=== PATIENT | female | born 1955 | race Caucasian/White ===

== ENCOUNTER 2023-01-04 11:50 | Outpatient (CLI) | payer SELFPAY ==
[2023-01-04 13:19] LABS: #Eosinphils 0.1 10x3/uL (0.0-0.5); #Monocytes 0.8 10x3/uL (0.0-1.1); #Neutrophils 7.8 10x3/uL (1.5-8.4); %Basophils 0.4 % (0.0-2.0); %Eosinophils 1.2 % (0.0-6.0); %Lymphocytes 12.3 % (18.0-47.0); %Neutrophils 77.6 % (40.0-75.0); Hemoglobin 10.6 g/dL (12.0-15.5); Mean Corpuscular HGB CONC 31.8 g/dL (32.0-36.0); Mean Corpuscular Hemoglobin 27.5 pg (27.0-33.0); Mean Corpuscular Volume 86.3 fl (81.6-98.3); Mean Platelet Volume 9.2 fl (7.4-10.4); Platelet Count 408 10x3/uL (150-450); RBC Distribution Width 14.1 % (11.5-14.5); Red Blood Cell (RBC) Count 3.86 10x6/uL (3.90-5.03); White Blood Cell (WBC) Count 10.1 10x3/uL (3.5-10.5)
[2023-01-04 13:37] LABS: Anion Gap 14 mmol/L (10-20); BUN (Urea Nitrogen) 12 mg/dL (9.8-20.1); Calc. Creatinine Clearance 0 mL/min (70-130); Calcium 9.3 mg/dL (7.8-10.44); Carbon Dioxide 27 mmol/L (23-31); Chloride 98 mmol/L (98-107); Estimated GFR 85; Glucose 87 mg/dL (80-115); Sodium 134 mmol/L (136-145)
== END 2023-01-04 11:51 | disposition home or self-care (01) ==
LOC: LABBT 11:50
PROVIDERS: ATTEND Surgery
DX: Z01.812 Encounter for preprocedural laboratory examination (principal); R59.1 Generalized enlarged lymph nodes
CPT/HCPCS: 80048; 85025

== ENCOUNTER 2023-01-07 11:48 | Inpatient (IN) | payer SELFPAY ==
[2023-01-07] MEDS ORDERED: Esmolol 100 MG/10 ML VIAL ONE (12:44)
[2023-01-07] MEDS ORDERED: Calcium Carbonate 500 MG ChewTAB PO PRN (13:11)
[2023-01-07] MEDS ORDERED: Ondansetron ODT 4 MG TAB PO PRN (13:11)
[2023-01-07] MEDS ORDERED: Senokot S 8.6-50 MG TAB PO PRN (13:11)
[2023-01-07] MEDS ORDERED: Acetaminophen 325 MG TAB PO PRN (13:11)
[2023-01-07] MEDS ORDERED: Ondansetron PF 4 MG/2 ML Vial IVP PRN (13:11)
[2023-01-07] MEDS ORDERED: Albuterol 200 PUFF (6.7GM INHALER) INH PRN (13:15)
[2023-01-07] MEDS ORDERED: Metoprolol Tartrate 5 MG/5 ML VIAL IVP PRN (13:19)
[2023-01-07 14:20] LABS: #Monocytes 0.5 thou/uL (0.11-0.59); #Neutrophils 9.3 thou/uL (1.40-6.50); %Basophils 0.4 % (0.0-1.0); %Eosinophils 0.2 % (0.0-10.0); %Lymphocytes 8.8 % (21.0-51.0); %Monocytes 4.7 % (0.0-10.0); %Neutrophils 85.8 % (42.0-75.0); Hemoglobin 11.1 g/dL (12.0-16.0); Mean Corpuscular HGB CONC 32.3 g/dL (32.0-36.0); Mean Corpuscular Hemoglobin 28.1 pg (27.0-31.0); Mean Corpuscular Volume 87.1 fl (78.0-98.0); Mean Platelet Volume 6.9 fL (7.4-10.4); Platelet Count 374 10x3/uL (130-400); RBC Distribution Width 12.9 % (11.5-14.5); Red Blood Cell (RBC) Count 3.96 mill/uL (4.20-5.40); White Blood Cell (WBC) Count 10.9 10x3/uL (4.8-10.8)
[2023-01-07] MEDS ORDERED: fentaNYL 50 mcg/mL 1 mL Vial ONE (14:28)
[2023-01-07] MEDS ORDERED: Fentanyl 100 MCG/2 ML VIAL SLOW IVP PRN (14:28)
[2023-01-07] MEDS ORDERED: Esmolol 2,500 MG/250 ML 250 ML IVPB SCH (14:30)
[2023-01-07 14:36] LABS: ALT (SGPT) Less than 7 U/L (8-55); AST (SGOT) 13 U/L (5-34); Albumin 3.6 g/dL (3.4-4.8); Alkaline Phosphatase 72 U/L (40-110); Anion Gap 16 mmol/L (10-20); BUN (Urea Nitrogen) 13 mg/dL (9.8-20.1); Bilirubin, Total 0.5 mg/dL (0.2-1.2); Calc. Creatinine Clearance 50 mL/min (70-130); Calcium 9.6 mg/dL (7.8-10.44); Carbon Dioxide 23 mmol/L (23-31); Chloride 97 mmol/L (98-107); Estimated GFR 85; Globulin 3.3 g/dL (2.4-3.5); Glucose 107 mg/dL (80-115); Potassium 4.3 mmol/L (3.5-5.1); Protein, Total 6.9 g/dL (5.8-8.1); Sodium 132 mmol/L (136-145)
[2023-01-07 14:40] LABS: Troponin I 0.028 ng/mL (< 0.028)
[2023-01-07 15:31] VITALS: BMI 18.3
[2023-01-07] MEDS ORDERED: Diltiazem HCl 125 MG, Admixture Fee 1 EACH in Sodium Chloride 0.9% 100 ML IVPB SCH (16:15)
[2023-01-07] MEDS: Sodium Chloride 0.9% 1,000 ML IV SCH (16:38)
[2023-01-07] MEDS ORDERED: Magnesium 2 GM/50 ML(in water) 2 GM in Premix Bag 1 BAG IVPB SCH (17:00)
[2023-01-07] MEDS: Melatonin 3 MG TAB PO PRN (21:05)
[2023-01-07] MEDS: Famotidine 20 MG TAB PO SCH (21:05)
[2023-01-07] MEDS ORDERED: fentaNYL 50 mcg/mL 1 mL Vial SLOW IVP PRN (21:10)
[2023-01-08] MEDS: Sodium Chloride 0.9% 1,000 ML IV SCH ×2 (00:51→09:23)
[2023-01-08 05:29] LABS: #Eosinphils 0.1 thou/uL (0.0-0.7); #Lymphocytes 0.9 thou/uL (1.20-3.40); #Monocytes 0.7 thou/uL (0.11-0.59); #Neutrophils 6.9 thou/uL (1.40-6.50); %Basophils 0.3 % (0.0-1.0); %Eosinophils 0.6 % (0.0-10.0); %Lymphocytes 10.6 % (21.0-51.0); %Monocytes 8.1 % (0.0-10.0); %Neutrophils 80.4 % (42.0-75.0); Mean Corpuscular HGB CONC 34.1 g/dL (32.0-36.0); Mean Corpuscular Hemoglobin 29.6 pg (27.0-31.0); Mean Corpuscular Volume 86.7 fl (78.0-98.0); Mean Platelet Volume 6.7 fL (7.4-10.4); Platelet Count 372 10x3/uL (130-400); RBC Distribution Width 12.9 % (11.5-14.5); White Blood Cell (WBC) Count 8.6 10x3/uL (4.8-10.8)
[2023-01-08 05:55] LABS: Bilirubin, Total 0.4 mg/dL (0.2-1.2); Calcium 8.8 mg/dL (7.8-10.44); Chloride 100 mmol/L (98-107); Potassium 4.6 mmol/L (3.5-5.1); Sodium 133 mmol/L (136-145)
[2023-01-08 05:58] LABS: Albumin 3.4 g/dL (3.4-4.8)
[2023-01-08 06:00] LABS: Globulin 3.2 g/dL (2.4-3.5); Glucose 92 mg/dL (80-115); Protein, Total 6.6 g/dL (5.8-8.1)
[2023-01-08 06:02] LABS: Anion Gap 13 mmol/L (10-20); Carbon Dioxide 25 mmol/L (23-31)
[2023-01-08 06:03] LABS: Alkaline Phosphatase 65 U/L (40-110); Calc. Creatinine Clearance 53 mL/min (70-130); Estimated GFR 88
[2023-01-08 06:04] LABS: BUN (Urea Nitrogen) 13 mg/dL (9.8-20.1)
[2023-01-08 06:05] LABS: AST (SGOT) 12 U/L (5-34)
[2023-01-08 06:06] LABS: ALT (SGPT) Less than 7 U/L (8-55); Magnesium 2.8 mg/dL (1.6-2.6)
[2023-01-08] MEDS ORDERED: Iopamidol 370 76% 100 ML VIAL ONE (08:45)
[2023-01-08] MEDS: Famotidine 20 MG TAB PO SCH ×2 (09:22→20:06)
[2023-01-08] MEDS: traMADol HCl 50 MG TAB PO PRN (20:06)
[2023-01-08] MEDS: Melatonin 3 MG TAB PO PRN (20:06)
[2023-01-09] MEDS ORDERED: Sevoflurane 250 ML INH ANEST BOTTLE ONE (05:48)
[2023-01-09] MEDS: traMADol HCl 50 MG TAB PO PRN (08:17)
[2023-01-09] MEDS: Famotidine 20 MG TAB PO SCH ×2 (08:18→20:31)
[2023-01-09] MEDS ORDERED: Lidocaine 2% PF 5 ML VIAL ONE (13:19)
[2023-01-09] MEDS ORDERED: Bupivacaine/Epinephrine 0.25% 30 ML VIAL ONE (13:19)
[2023-01-09] MEDS ORDERED: fentaNYL PF 100 MCG/2 ML SYRINGE ONE (13:27)
[2023-01-09] MEDS ORDERED: PHENYLEPHRINE-NS 100 MCG/ML 10 ML SYRINGE ONE (13:40)
[2023-01-09] MEDS ORDERED: Rocuronium Bromide 10 MG/ML (10ML VIAL) ONE (13:40)
[2023-01-09] MEDS ORDERED: Ondansetron PF 4 MG/2 ML Vial ONE (13:40)
[2023-01-09] MEDS ORDERED: PROPOFOL 200 MG/20 ML VIAL ONE (13:40)
[2023-01-09] MEDS ORDERED: ePHEDrine Sulfate 50 MG/10 ML VIAL ONE (13:40)
[2023-01-09] MEDS ORDERED: Glycopyrrolate 0.2 MG/ML 5 ML SYRINGE ONE (13:40)
[2023-01-09] MEDS ORDERED: NEOSTIGMINE 3 MG/3 ML SYR 3 MG/3 ML SYRINGE ONE (13:40)
[2023-01-09] MEDS ORDERED: Lidocaine 1% PF 5 ML VIAL ONE (13:40)
[2023-01-09] MEDS ORDERED: Levofloxacin 500 mg/D5W 100 ml Premix Bag ONE (14:03)
[2023-01-09] MEDS ORDERED: SUGAMMADEX SODIUM 200 MG/2 ML VIAL ONE (14:20)
[2023-01-09] MEDS ORDERED: traMADol HCl 50 MG TAB PO PRN ×2 (14:29)
[2023-01-09] MEDS ORDERED: Morphine 4 MG/ML VIAL SLOW IVP PRN (14:29)
[2023-01-09] MEDS: Melatonin 3 MG TAB PO PRN (20:31)
[2023-01-10] MEDS: Famotidine 20 MG TAB PO SCH (08:47)
[2023-01-10] MEDS ORDERED: Flecainide 50 MG TAB PO SCH (09:00)
[2023-01-10 15:50] VITALS: BP 141/87; TEMP 97.7
== END 2023-01-10 17:37 | disposition home or self-care (01) | DRG 824 ==
LOC: SUATTDRO 11:48 → SDC 11:48 → 2NO 15:33
PROVIDERS: ADMIT Internal Medicine; ATTEND Hospitalist
PROC: 07B53ZX Excision of Right Axillary Lymphatic, Percutaneous Approach, Diagnostic (ICD-10-PCS; principal; 2023-01-09)
DX: C77.3 Secondary and unspecified malignant neoplasm of axilla and upper limb lymph nodes (principal); C34.90 Malignant neoplasm of unspecified part of unspecified bronchus or lung; R64 Cachexia; Z68.1 Body mass index [BMI] 19.9 or less, adult; I48.0 Paroxysmal atrial fibrillation; F17.210 Nicotine dependence, cigarettes, uncomplicated; J44.9 Chronic obstructive pulmonary disease, unspecified; Z88.0 Allergy status to penicillin; Z79.51 Long term (current) use of inhaled steroids; Z90.710 Acquired absence of both cervix and uterus
CPT/HCPCS: 36415; 36416; 71260; 80053; 83735; 84484; 85025; 88184; 88305; 88307; 88341; 88342; 93005; 93010; 93306; C1776; C1889; J1956; J2001; J2405; J2704; J3010; J3475; J7050; Q9967